=== PATIENT | male | born 1960 | race Caucasian/White ===

== ENCOUNTER 2021-12-05 05:49 | Observation (INO) ==
[2021-12-05] MEDS ORDERED: Lactated Ringers 1000 ml BAG 1,000 ML IV SCH (06:00)
[2021-12-05] MEDS ORDERED: Buffered Lidocaine 1% SYRIN 1 ml INTRADERM ONE (06:00)
[2021-12-05] MEDS ORDERED: ceFAZolin 2 GM PREMIX 2 GM/50 ML BAG ONE (06:12)
[2021-12-05] MEDS ORDERED: Naloxone 0.4 mg VIAL 0.4 mg/ml 1 ml VIAL IV PRN (07:15)
[2021-12-05] MEDS ORDERED: HYDROmorphone 1 MG/1 ML SYRINGE IV PRN (07:15)
[2021-12-05] MEDS ORDERED: Prochlorperazine 5 mg/ml 2 ml VIAL (10 mg) IV PRN (07:15)
[2021-12-05] MEDS ORDERED: Lidocaine 2% PF 5 ML VIAL ONE (07:19)
[2021-12-05] MEDS ORDERED: Phenylephrine IV 10 MG/ML 1 ml VIAL ONE (07:19)
[2021-12-05] MEDS ORDERED: Midazolam 2 mg/2 ml VIAL 1 mg/ml 2 ml VIAL (2 mg) ONE (07:23)
[2021-12-05] MEDS ORDERED: fentaNYL 100 mcg/2 ml 50 MCG/ML VIAL ONE (07:23)
[2021-12-05] MEDS ORDERED: Ondansetron 4 mg VIAL 2 MG/ML 2 ml VIAL ONE (08:20)
[2021-12-05] MEDS ORDERED: Dexamethasone IV 4 MG/ML VIAL 1 ml VIAL ONE (08:20)
[2021-12-05] MEDS ORDERED: Glycopyrrolate IV 0.2 MG/ML 1 ML VIAL ONE ×2 (08:20→08:40)
[2021-12-05] MEDS ORDERED: Morphine 2 MG/ML SYRINGE IV PRN (09:13)
[2021-12-05] MEDS ORDERED: Lactulose 30 ml UDC PO PRN (09:13)
[2021-12-05] MEDS ORDERED: Magnesium Hydroxide LIQ 30 ML UDC PO PRN (09:13)
[2021-12-05] MEDS ORDERED: Ondansetron 4 mg VIAL 2 MG/ML 2 ml VIAL IV PRN (09:13)
[2021-12-05] MEDS ORDERED: Ondansetron ODT 4 mg TAB 4 MG TAB PO PRN (09:13)
[2021-12-05] MEDS ORDERED: ceFAZolin 1 GM ADVAN 1 GM in NS 0.9% 50 ML 50 ML IVPB SCH (10:00)
[2021-12-05] MEDS ORDERED: Propofol 10 MG/ML 20 ML BTL ONE (10:17)
[2021-12-05] MEDS ORDERED: HYDROmorphone 1 MG/1 ML SYRINGE ONE (11:09)
[2021-12-05] MEDS: Lactated Ringers 1000 ml BAG 1,000 ML IV SCH (13:20)
[2021-12-05] MEDS: ceFAZolin 1 GM in Dextrose 1 GM/50 ML BAG IVPB SCH ×2 (15:19→20:49)
[2021-12-05] MEDS: Magnesium Hydroxide LIQ 30 ML UDC PO SCH (20:56)
[2021-12-06] MEDS: Lactated Ringers 1000 ml BAG 1,000 ML IV SCH (01:35)
[2021-12-06 05:29] LABS: Hematocrit 39 % (42-52); Hemoglobin 12.9 g/dL (14.0-18.0); Platelet Count 190 10^3/uL (150-450)
[2021-12-06 05:57] LABS: Calcium 8.5 mg/dL (8.6-10.3); Potassium 4.2 mmol/L (3.5-5.0); eGFR CKD-EPI 85.1 (>60)
[2021-12-06] MEDS: ceFAZolin 1 GM in Dextrose 1 GM/50 ML BAG IVPB SCH (06:05)
[2021-12-06] MEDS: Magnesium Hydroxide LIQ 30 ML UDC PO SCH (08:50)
[2021-12-06] MEDS ORDERED: Vitamin THERAPEUTIC TAB PO SCH (09:00)
[2021-12-06] MEDS ORDERED: Aspirin EC 81 mg TAB.EC (enteric coated) PO SCH (09:00)
[2021-12-06 11:43] VITALS: BP 132/81
== END 2021-12-06 13:50 | disposition home or self-care (01) ==
LOC: SSU 05:49 → OR 05:49 → EDSTATUS 14:00
PROVIDERS: ADMIT Orthopaedic Surgery Adult Reconstructive Orthopaedic Surgery; ATTEND Orthopaedic Surgery Adult Reconstructive Orthopaedic Surgery